=== PATIENT | female | born 2000 | race Native Hawaiian/Other Pacific Islander ===

== ENCOUNTER 2023-12-11 14:39 | Emergency (ER) | payer BC, SELFPAY ==
[2023-12-11 14:46] VITALS: BP 92/57; PULSE 66; RESP 18; TEMP 36.5; O2SAT 99; BMI 21.9
[2023-12-11 14:54] LABS: Appearance Urine Clear (Clear); Bilirubin Urine Negative (Negative); Blood Urine 3+ (Negative); Color Urine Yellow (Yellow); Glucose Urine Negative (Negative); Ketones Urine Negative (Negative); Leukocyte Esterase Urine Negative (Negative); Nitrite Urine Negative (Negative); Protein Urine Negative (Negative); Urobilinogen Urine 0.2 (0.2-1.0); pH Urine 8.5 (5.0-8.5)
--- NOTE | 2023-12-11 15:02 | ED_ITS ---
HPI - General Adult General Chief complaint: Urogenital Problems, Female Stated complaint: Vaginal bleeding, Abdominal pain Time Seen by Provider: 12/11/23 14:56 Source: patient Mode of arrival: ambulatory Limitations: no limitations History of Present Illness HPI narrative: 23-year-old female coming in today complaining of hematuria. She states that she has noticed blood in her urine twice today now. She denies any abdominal pain, no flank pain. She denies any dysuria. No increased urinary frequency or urgency. She denies any diarrhea. Her last period was approximately 3 weeks ago. She is not on control. She denies fevers or chills. No nausea or vomiting. Patient is not 100% sure whether the blood is coming from the urethra or the vagina. She states that there is a little bit of blood on the toilet paper when she wipes. However she is not spotting. Related Data Previous Rx's Medication Instructions Recorded nitrofurantoin 100 mg PO Q12H 5 days #10 caps 12/11/23 monohydrate/macrocrystals 100 mg capsule (Macrobid) Allergies Allergy/AdvReac Type Severity Reaction Status Date / Time No Known Drug Allergies Allergy Verified 12/11/23 14:48 Review of Systems Status of ROS: Reports: 6 or more systems reviewed and unremarkable except as noted in History and below Exam Narrative: Exam Narrative: Well-nourished well-developed patient in no acute distress. Alert and oriented. Answers questions appropriately. Mood and affect are appropriate. Thoughts are goal oriented and rational. No tangential or magical thinking noted. Patient speaks in full sentences without needing to catch her breath. HEENT: Normocephalic atraumatic. Pupils are equally round reactive to light. Extraocular muscles are intact. Conjunctivae are moist without any icterus noted. Moist mucous membranes. Const: Vital Signs, click to edit/add: Vital Signs - 24 hr 12/11/23 14:46 Temperature 97.7 F Pulse Rate [Right Pulse Oximeter] 66 Respiratory Rate 18 Blood Pressure [Ri ght Upper Arm] 92/57 L Pulse Oximetry 99 Oxygen Delivery Me thod Room Air Course Course ED Course: Urine shows 3+ blood, 0-2 RBCs on microscopic. Vital Signs Vital signs: Initial Vital Signs Temperature 97.7 F 12/11/23 14:46 Temperature Source Temporal Artery Scan 12/11/23 14:46 Pulse Rate 66 04/07/24 14:46 Respiratory Rate 18 12/11/23 14:46 Blood Pressure 92/57 L 12/11/23 14:46 Blood Pressure Mean 68 L 12/11/23 14:46 Blood Pressure Position Sitting 12/11/23 14:46 Pulse Oximetry 99 12/11/23 14:46 Oxygen Delivery Method Room Air 12/11/23 14:46 Vital Signs Temperature 97.7 F 12/11/23 14:46 Pulse Rate 66 12/11/23 14:46 Respiratory Rate 18 12/11/23 14:46 Blood Pressure 92/57 L 12/11/23 14:46 Pulse Oximetry 99 12/11/23 14:46 Oxygen Delivery Method Room Air 12/11/23 14:46 Temperature 97.7 F 12/11/23 14:46 Pulse Rate 66 12/11/23 14:46 Respiratory Rate 18 12/11/23 14:46 Blood Pressure 92/57 L 12/11/23 14:46 Pulse Oximetry 99 12/11/23 14:46 Oxygen Delivery Method Room Air 12/11/23 14:46 Medical Decision Making MDM Narrative Medical decision making narrative: 23-year-old female with vaginal verses urethral bleeding. We discussed doing a pelvic exam versus treating for a potential UTI and patient defers an exam at this time. Therefore we discussed treating with an antibiotic for 5 days, if this is a UTI symptoms should be getting better. Otherwise she may be having some vaginal bleeding between her periods - her period is due in approximately a week. We discussed following up with her primary care provider or [facility]alone fisherman if bleeding continues or gets worse. We discussed that given the UA results with 0-2 RBCs on the microscopic that there is a high likelihood that the bleeding is vaginal in nature. Lab Data Lab results reviewed: Yes I reviewed the patient's lab results Labs: Lab Results 12/11/23 Range/Units 14:47 Urine Color Yellow (Yellow) Urine Appearance Clear (Clear) Urine pH 8.5 (5.0-8.5) Ur Specific [place] 1.020 (1.000-1.030) Urine Protein Negative (Negative) Urine Glucose (UA) Negative (Negative) Urine Ketones Negative (Negative) Urine Blood 3+ A (Negative) Urine Nitrite Negative (Negative) Urine Bilirubin Negative (Negative) Urine Urobilinogen 0.2 (0.2-1.0) Ur Leukocyte Esterase Negative (Negative) Urine RBC 0-2 (0-2) Urine WBC 0-2 (0-5) Ur Squamous Epith Cells None (None-Few) Urine Bacteria None (None) Discharge Plan Discharge Clinical Impression: Hematuria Patient Disposition: Home, Self-Care Condition: Stable Additional Instructions: Take all antibiotics as prescribed. If bleeding does not get better, follow up with your primary care provider. Prescriptions: New nitrofurantoin monohyd/m-cryst [Macrobid] 100 mg capsule 100 mg PO Q12H 5 Days Qty: 10 0RF Rx Instructions: must administer with a meal/food Follow Up/Referrals: Leigh Ashley MD [Primary Care Provider] - Stand Alone Forms: [facility] Info Instructions
[2023-12-11 15:03] LABS: RBC Urine 0-2 (0-2); WBC Urine 0-2 (0-5)
== END 2023-12-11 15:17 | disposition home or self-care (01) ==
LOC: ED 15:09
PROVIDERS: Emergency Provider Family Medicine; PCP Pediatrics
DX: R31.9 Hematuria, unspecified (principal)
CPT/HCPCS: 81001; 99283

== ENCOUNTER 2024-05-09 06:55 | Emergency (ER) | payer BC, SELFPAY ==
[2024-05-09 07:12] VITALS: BP 115/75; PULSE 68; RESP 18; TEMP 37.3; O2SAT 100; BMI 22.1
--- NOTE | 2024-05-09 07:32 | CRLHL7_ITS ---
For Patients: As a result of the Century Cures Act, medical imaging exams and procedure reports are released immediately into your electronic medical record. You may view this report before your referring provider. If you have questions, please contact your health care provider. Indication: Bleeding Technique: Sonography of the gravid uterus was performed. The examination was performed transvaginally. Grayscale and Doppler imaging was provided Comparison: None Findings: The uterus is normal in size and configuration. No myometrial mass. A gestational sac is noted averaging 2.5 centimeters in diameter. The margins of the sac appear normal. A yolk sac is identified measuring 2.5 millimeters with normal morphology. A single living fetus is identified. This measures 1.7 centimeters corresponding to 8 weeks and 1 day with an estimated date of delivery of 12/18/2024. heart rate is 171 beats per minute which is normal. The right ovary measures 3.5 x 2.4 x 2.4 centimeters containing a corpus luteum cyst of . The left ovary was not identified. There is no free fluid in the cul de sac. A subchorionic hemorrhage is noted measuring 2.0 x 1.0 x 1.9 centimeters Impression: There is a single live intrauterine gestation at 8 weeks and 1 day with an estimated date of delivery of 12/18/2024. Subchorionic hemorrhage measuring 2.0 x 1.0 x 1.9 centimeters. Normal heart rate of 171 beats per minute Dictated by Bhaskar Graham MD @ 05/09/2024 8:35:20 AM (Electronically Signed)
--- NOTE | 2024-05-09 07:33 | ED.GENADULT ---
HPI - General Adult General Chief complaint: Vaginal Bleeding <Martha Wolfe MD - Last Filed: 05/09/24 08:33> Stated complaint: spotting & back pain- 7 wks preg <Martha Wolfe MD - Last Filed: 05/09/24 08:33> Time Seen by Provider: 05/09/24 07:16 <Martha Wolfe MD - Last Filed: 05/09/24 08:33> Source: patient <Martha Wolfe MD - Last Filed: 05/09/24 08:33> Mode of arrival: ambulatory <Martha Wolfe MD - Last Filed: 05/09/24 08:33> Limitations: no limitations <Martha Wolfe MD - Last Filed: 05/09/24 08:33> History of Present Illness HPI narrative: 23-year-old primary gravid with LMP of 03/15/2024 presents to the emergency department for evaluation of vaginal spotting, slight cramping and back pain this morning. Low-grade fever noted in triage. No trauma or injury, no vaginal discharge or dysuria. No prior history of DVT or PE, no anticoagulant use. Does not know her blood type. Believe she had an [facility] encounter [facility]. No prescription medications. No known drug allergies. She shows me the underwear and it is very scant spotting. No blood clots or tissue noted. No abdominal pain, vomiting or other complaints today. No unusual vaginal discharge besides the spotting. Past medical history is benign per her report. It sounds like she has had some PVCs before but no true arrhythmia. No prior . No allergies are long-term medications. Nonsmoker. ROS notable for the gynecological symptoms as above only, otherwise denies times 12 systems. <Martha Wolfe MD - Last Filed: 05/09/24 08:33> Related Data Home medications: Previous Rx's ?Medication ?Instructions ?Recorded nitrofurantoin 100 mg PO Q12H 5 days #10 caps 12/11/23 monohydrate/macrocrystals 100 mg capsule (Macrobid) nitrofurantoin 100 mg PO Q12H 5 days #10 caps 12/11/23 monohydrate/macrocrystals 100 mg capsule (Macrobid) <Martha Wolfe MD - Last Filed: 05/09/24 08:33> Allergies/adverse reactions: Allergies Allergy/AdvReac Type Severity Reaction Status Date / Time No Known Drug Allergies Allergy Verified 12/11/23 14:48 <Martha Wolfe MD - Last Filed: 05/09/24 08:33> PFSH PFSH Social History: Social History Smoking Status: Never smoker How often do you have a drink containing alcohol: never AUDIT-C Alcohol total score: 0 Non-prescribed substance use: denies use <Martha Wolfe MD - Last Filed: 05/09/24 08:33> Exam Const: Vital Signs, click to edit/add: Vital Signs - 24 hr 05/09/24 07:12 Temperature 99.1 F Pulse Rate [Pulse Oximeter] 68 Respiratory Rate 18 Blood Pressure [Ri ght Upper Arm] 115/75 Pulse Oximetry 100 Oxygen Delivery Me thod Room Air <Martha Wolfe MD - Last Filed: 05/09/24 08:33> Vital Signs, click to edit/add: Vital Signs - 24 hr 05/09/24 07:12 Temperature 99.1 F Pulse Rate [Pulse Oximeter] 68 Respiratory Rate 18 Blood Pressure [Ri ght Upper Arm] 115/75 Pulse Oximetry 100 Oxygen Delivery Me thod Room Air <Emerson Arevalo MD - Last Filed: 05/09/24 13:18> Documenting provider has reviewed patient's vital signs: yes <Martha Wolfe MD - Last Filed: 05/09/24 08:33> Common normals: no apparent distress <Martha Wolfe MD - Last Filed: 05/09/24 08:33> General appearance: cooperative and well kempt <Martha Wolfe MD - Last Filed: 05/09/24 08:33> Other: Tearful but appropriate, good historian <Martha Wolfe MD - Last Filed: 05/09/24 08:33> HENMT: Common normals: normocephalic <Martha Wolfe MD - Last Filed: 05/09/24 08:33> Head and scalp: normocephalic <MD Mishel Allan Last Filed: 05/09/24 08:33> Face and sinus: normal facial exam <MD Mishel Allan Last Filed: 05/09/24 08:33> Mouth: oral and palatal mucosa normal <MD Mishel Allan Last Filed: 05/09/24 08:33> Eye: Common normals: conjunctivae normal <MD Mishel Allan Last Filed: 05/09/24 08:33> General eye: normal appearance of both eyes <MD Mishel Allan Last Filed: 05/09/24 08:33> Conjunctiva: conjunctiva(e) normal <MD Mishel Allan Last Filed: 05/09/24 08:33> Resp: Common normals: normal respiratory effort, no use of accessory muscles and clear to auscultation bilaterally <MD Mishel Allan Last Filed: 05/09/24 08:33> Effort & inspection: able to speak in complete sentences <MD Mishel Allan Last Filed: 05/09/24 08:33> Auscultation: clear to auscultation bilaterally <MD Mishel Allan Last Filed: 05/09/24 08:33> Cardio: Common normals: regular rate, regular rhythm, S1 normal heart sound, S2 normal heart sound and no murmurs <MD Mishel Allan Last Filed: 05/09/24 08:33> Rate: regular rate <MD Mishel Allan Last Filed: 05/09/24 08:33> Rhythm: regular rhythm <MD Misehl Allan Last Filed: 05/09/24 08:33> Heart sounds: S1 normal and S2 normal <MD Mishel Allan Last Filed: 05/09/24 08:33> GI: Common normals: Normal to inspection, nondistended, normoactive bowel sounds present, soft to palpation, non-tender, no hepatosplenomegaly and no masses <MD Mishel Allan Last Filed: 05/09/24 08:33> Palpation: soft and no hepatosplenomegaly <Martha Wolfe MD - Last Filed: 05/09/24 08:33> Other: No fundal height palpable. <Martha Wolfe MD - Last Filed: 05/09/24 08:33> Extremity: Common normals: normal to inspection, normal capillary refill and no pedal edema <Martha Wolfe MD - Last Filed: 05/09/24 08:33> Psych: Appearance: well kempt <Martha Wolfe MD - Last Filed: 05/09/24 08:33> Attitude: engaged <Martha Wolfe MD - Last Filed: 05/09/24 08:33> Activity/motor behavior: appropriate eye contact <Martha Wolfe MD - Last Filed: 05/09/24 08:33> Insight: insight good <Martha Wolfe MD - Last Filed: 05/09/24 08:33> Judgement: judgment good <Martha Wolfe MD - Last Filed: 05/09/24 08:33> Skin: Common normals: no rashes or lesions noted <Martha Wolfe MD - Last Filed: 05/09/24 08:33> General skin exam: no rashes or lesions noted <Martha Wolfe MD - Last Filed: 05/09/24 08:33> Course Course ED Course: Under were examined, very scant bleeding, no active bleeding. Bedside ultrasound used and bladder was not ideally full but I can see what appears to be the uterus and endometrial stripe is super thin and I do not see any type of gestational sac. Unfortunately, I cannot clearly see the ovaries through this transabdominal view. I will need formal ultrasound. Differential diagnosis including kidney stone, gastroenteritis, pelvic infection but more likely miscarriage. Will obtain blood type, CBC, hCG quant and formal ultrasound. Cannot exclude ectopic unfortunately based on my limited ultrasound. Minimal bleeding at this point, no signs of significant hemorrhage. Vital signs stable. Low-grade fevers curious therefore warrants blood work. Anticipate handing over care to incoming day shift partner. <Martha Wolfe MD - Last Filed: 05/09/24 08:33> Reevaluation(s) Time of Reevaluation #1: 08:18 <Martha Wolfe MD - Last Filed: 05/09/24 08:33> Reevaluation #1: Counseled patient on preliminary ultrasound findings, [place] IUP noted. Large area of subchorionic hemorrhage noted. Chance this will go on to miscarriage. We reviewed the indications for ED management versus home management. Follow-up with primary care provider in 1-2 days. Any severe bleeding, dizziness, lightheadedness, soaking through more than 1 pad per hour for over an hour, and or any severe worrisome symptoms should come right back to the ED. She verbalizes understanding and agreement. Patient partner will follow up on formal ultrasound report to make sure that there are no discrepancies prior to discharge. <Martha Wolfe MD - Last Filed: 05/09/24 08:33> Vital Signs Vital signs: Initial Vital Signs Temperature 99.1 F 05/09/24 07:12 Temperature Source Temporal Artery Scan 05/09/24 07:12 Pulse Rate 68 05/09/24 07:12 Respiratory Rate 18 05/09/24 07:12 Blood Pressure 115/75 05/09/24 07:12 Blood Pressure Mean 88 05/09/24 07:12 Pulse Oximetry 100 05/09/24 07:12 Oxygen Delivery Method Room Air 05/09/24 07:12 Vital Signs Temperature 99.1 F 05/09/24 07:12 Pulse Rate 68 05/09/24 07:12 Respiratory Rate 18 05/09/24 07:12 Blood Pressure 115/75 05/09/24 07:12 Pulse Oximetry 100 05/09/24 07:12 Oxygen Delivery Method Room Air 05/09/24 07:12 Temperature 99.1 F 05/09/24 07:12 Pulse Rate 68 05/09/24 07:12 Respiratory Rate 18 05/09/24 07:12 Blood Pressure 115/75 05/09/24 07:12 Pulse Oximetry 100 05/09/24 07:12 Oxygen Delivery Method Room Air 05/09/24 07:12 <Martha Wolfe MD - Last Filed: 05/09/24 08:33> Initial Vital Signs Temperature 99.1 F 05/09/24 07:12 Temperature Source Temporal Artery Scan 05/09/24 07:12 Pulse Rate 68 05/09/24 07:12 Respiratory Rate 18 05/09/24 07:12 Blood Pressure 115/75 05/09/24 07:12 Blood Pressure Mean 88 05/09/24 07:12 Pulse Oximetry 100 05/09/24 07:12 Oxygen Delivery Method Room Air 05/09/24 07:12 Vital Signs Temperature 99.1 F 05/09/24 07:12 Pulse Rate 68 05/09/24 07:12 Respiratory Rate 18 05/09/24 07:12 Blood Pressure 115/75 05/09/24 07:12 Pulse Oximetry 100 05/09/24 07:12 Oxygen Delivery Method Room Air 05/09/24 07:12 Temperature 99.1 F 05/09/24 07:12 Pulse Rate 68 05/09/24 07:12 Respiratory Rate 18 05/09/24 07:12 Blood Pressure 115/75 05/09/24 07:12 Pulse Oximetry 100 05/09/24 07:12 Oxygen Delivery Method Room Air 05/09/24 07:12 <Emerson Arevalo MD - Last Filed: 05/09/24 13:18> Medical Decision Making MDM Narrative Medical decision making narrative: Mickey -- received Ms. Bradford in handoff at change of shift. Reviewed case. Pollution Control Chemist noting subchorionic hemorrhage. Pending a blood typing and hCG. Preliminary discharge anticipating no changes in conclusion/diagnosis per Dr. Wolfe Radiology over-read of ultrasound as below Findings: The uterus is normal in size and configuration. No myometrial mass. A gestational sac is noted averaging 2.5 centimeters in diameter. The margins of the sac appear normal. A yolk sac is identified measuring 2.5 millimeters with normal morphology. A single living fetus is identified. This measures 1.7 centimeters corresponding to 8 weeks and 1 day with an estimated date of delivery of 12/18/2024. heart rate is 171 beats per minute which is normal. The right ovary measures 3.5 x 2.4 x 2.4 centimeters containing a corpus luteum cyst of . The left ovary was not identified. There is no free fluid in the cul de sac. A subchorionic hemorrhage is noted measuring 2.0 x 1.0 x 1.9 centimeters Impression: There is a single live intrauterine gestation at 8 weeks and 1 day with an estimated date of delivery of 12/18/2024. Subchorionic hemorrhage measuring 2.0 x 1.0 x 1.9 centimeters. Normal heart rate of 171 beats per minute Discussed findings with patient and family. Hemoglobin looks good. Blood type O positive and will not need RhoGAM or similar. Appropriate hCG quantitative. Answered patient and family questions. See patient discharge plan for further discussion <Emerson Arevalo MD - Last Filed: 05/09/24 13:18> Lab Data Labs: Lab Results 05/09/24 05/09/24 Range/Units 07:34 07:40 WBC 5.47 (4.50-11.00) K/uL RBC 4.37 (4.00-5.20) m/uL Hgb 13.1 (12.0-16.0) gm/dL Hct 38.4 (33.0-51.0) % MCV 88 (80-100) fL MCH 30 (26-34) pg MCHC 34 (32-36) gm/dL RDW Coeff of [place] 13.0 (11.5-15.5) % Plt Count 198 (140-440) K/uL Neut % (Auto) 64.7 (42.0-72.0) % Lymph % (Auto) 25.2 (20-44) % [place] % (Auto) 8.0 (0.0-11.0) % Eos % (Auto) 1.5 (0.0-7.0) % Baso % (Auto) 0.4 (0.0-3.0) % Neut # (Auto) 3.54 (1.7-7.0) K/uL Lymph # (Auto) 1.38 (0.90-2.90) K/uL [place] # (Auto) 0.40 (0.00-0.90) K/UL Eos # (Auto) 0.08 (0.00-0.50) K/uL Baso # (Auto) 0.02 (0.00-0.30) K/uL Abs Immat Gran (auto) 0.01 (0.00-0.30) K/uL Imm/Tot Granulo (auto) 0.2 % HCG, Quant 481651.00 mIU/mL Urine Color Yellow (Yellow) Urine Appearance Clear (Clear) Urine pH 6.0 (5.0-8.5) Ur Specific [place] 1.025 (1.000-1.030) Urine Protein Negative (Negative) Urine Glucose (UA) Negative (Negative) Urine Ketones Negative (Negative) Urine Blood Trace-intact A (Negative) Urine Nitrite Negative (Negative) Urine Bilirubin Negative (Negative) Urine Urobilinogen 0.2 (0.2-1.0) Ur Leukocyte Esterase Negative (Negative) Urine RBC 0-2 (0-2) Urine WBC 2-5 (0-5) Ur Squamous Epith Cells Few (None-Few) Urine Bacteria Moderate A (None) Urine Mucus Many A (None) Blood Type O Positive <Martha Wolfe MD - Last Filed: 05/09/24 08:33> Lab Results 05/09/24 05/09/24 Range/Units 07:34 07:40 WBC 5.47 (4.50-11.00) K/uL RBC 4.37 (4.00-5.20) m/uL Hgb 13.1 (12.0-16.0) gm/dL Hct 38.4 (33.0-51.0) % MCV 88 (80-100) fL MCH 30 (26-34) pg MCHC 34 (32-36) gm/dL RDW Coeff of [place] 13.0 (11.5-15.5) % Plt Count 198 (140-440) K/uL Neut % (Auto) 64.7 (42.0-72.0) % Lymph % (Auto) 25.2 (20-44) % [place] % (Auto) 8.0 (0.0-11.0) % Eos % (Auto) 1.5 (0.0-7.0) % Baso % (Auto) 0.4 (0.0-3.0) % Neut # (Auto) 3.54 (1.7-7.0) K/uL Lymph # (Auto) 1.38 (0.90-2.90) K/uL [place] # (Auto) 0.40 (0.00-0.90) K/UL Eos # (Auto) 0.08 (0.00-0.50) K/uL Baso # (Auto) 0.02 (0.00-0.30) K/uL Abs Immat Gran (auto) 0.01 (0.00-0.30) K/uL Imm/Tot Granulo (auto) 0.2 % HCG, Quant 355215.00 mIU/mL Urine Color Yellow (Yellow) Urine Appearance Clear (Clear) Urine pH 6.0 (5.0-8.5) Ur Specific [place] 1.025 (1.000-1.030) Urine Protein Negative (Negative) Urine Glucose (UA) Negative (Negative) Urine Ketones Negative (Negative) Urine Blood Trace-intact A (Negative) Urine Nitrite Negative (Negative) Urine Bilirubin Negative (Negative) Urine Urobilinogen 0.2 (0.2-1.0) Ur Leukocyte Esterase Negative (Negative) Urine RBC 0-2 (0-2) Urine WBC 2-5 (0-5) Ur Squamous Epith Cells Few (None-Few) Urine Bacteria Moderate A (None) Urine Mucus Many A (None) Blood Type O Positive <Emerson Arevalo MD - Last Filed: 05/09/24 13:18> Imaging Data Pelvic ultrasound: Attestation: I have reviewed the pertinent imaging results. <Martha Wolfe MD - Last Filed: 05/09/24 08:33> My impression: Tech and my impression of the transvaginal views shows a well-developed single daniel IUP consistent with reported gestational age. There unfortunately is a pretty good sized subchorionic hemorrhage as well. <Martha Wolfe MD - Last Filed: 05/09/24 08:33> Discharge Plan Discharge Clinical Impression: Subchorionic hemorrhage in first trimester, Threatened <Martha Wolfe MD - Last Filed: 05/09/24 08:33> Patient Disposition: Home w/ Parent or Adult <Martha Wolfe MD - Last Filed: 05/09/24 08:33> Condition: Stable <Martha Wolfe MD - Last Filed: 05/09/24 08:33> Instructions: Subchorionic Hemorrhage (ED) <Martha Wolfe MD - Last Filed: 05/09/24 08:33> Additional Instructions: As discussed, there is a healthy appearing, growing baby low in the uterus. This is good news. Unfortunately, we do see an area of bleeding along the edge of the developing placenta. At this time, it is too soon to tell what will happen. There is a chance that you will go on to miscarry this and there is a good chance that you will go on to continue with a healthy . You are likely to continue to have spotting though because of this area of bleeding under the placenta. With slight bleeding, you do not need to coming to the emergency department. You should come into the emergency department if your consistently soaking through a pad per hour for over an hour. You can also call your primary care doctor for guidance if you are unsure. I would recommend pelvic rest meaning nothing in the vagina for the next 48 hours and that you follow-up with your regular doc in 1-2 days to recheck how things are going and for additional advice and guidance. It is okay to use Tylenol as needed for mild cramping and discomfort. Rest for today. Continue to eat and drink normally. Zofran as requested from [facility]. <Martha Wolfe MD - Last Filed: 05/09/24 08:33> Activity Level: Activity as Tolerated <Martha Wolfe MD - Last Filed: 05/09/24 08:33> Activity as Tolerated <Emerson Arevalo MD - Last Filed: 05/09/24 13:18> Discharge Diet: Regular <Martha Wolfe MD - Last Filed: 05/09/24 08:33> Regular <Emerson Arevalo MD - Last Filed: 05/09/24 13:18> Prescriptions: No Action nitrofurantoin monohyd/m-cryst [Macrobid] 100 mg capsule 100 mg PO Q12H 5 Days Qty: 10 0RF Rx Instructions: must administer with a meal/food nitrofurantoin monohyd/m-cryst [Macrobid] 100 mg capsule 100 mg PO Q12H 5 Days Qty: 10 0RF Rx Instructions: must administer with a meal/food <Martha Wolfe MD - Last Filed: 05/09/24 08:33> Follow Up/Referrals: Leigh Ashley MD [Primary Care Provider] - <Martha Wolfe MD - Last Filed: 05/09/24 08:33> Stand Alone Forms: [facility] Info Instructions <Martha Wolfe MD - Last Filed: 05/09/24 08:33>
[2024-05-09 07:41] LABS: Basophils Absolute Auto 0.02 K/uL (0.00-0.30); Basophils Percent Auto 0.4 % (0.0-3.0); Eosinophils Absolute Auto 0.08 K/uL (0.00-0.50); Eosinophils Percent Auto 1.5 % (0.0-7.0); Hematocrit 38.4 % (33.0-51.0); Hemoglobin* 13.1 gm/dL (12.0-16.0); Immature Granulocytes Abs Auto 0.01 K/uL (0.00-0.30); Immature Granulocytes Pct Auto 0.2 %; Lymphocytes Absolute Auto 1.38 K/uL (0.90-2.90); Lymphocytes Percent Auto 25.2 % (20-44); Mean Corpuscular HGB Conc 34 gm/dL (32-36); Mean Corpuscular Hemoglobin 30 pg (26-34); Mean Corpuscular Volume 88 fL (80-100); Neutrophils Absolute Auto 3.54 K/uL (1.7-7.0); Neutrophils Percent Auto 64.7 % (42.0-72.0); Platelet Count* 198 K/uL (140-440); Red Blood Count 4.37 m/uL (4.00-5.20); White Blood Count* 5.47 K/uL (4.50-11.00)
[2024-05-09 07:43] LABS: Slide Review Reflex No
[2024-05-09 08:14] LABS: Appearance Urine Clear (Clear); Color Urine Yellow (Yellow)
[2024-05-09 08:15] LABS: Bilirubin Urine Negative (Negative); Blood Urine Trace-intact (Negative); Glucose Urine Negative (Negative); Ketones Urine Negative (Negative); Leukocyte Esterase Urine Negative (Negative); Nitrite Urine Negative (Negative); Protein Urine Negative (Negative); Specific Gravity Urine 1.025 (1.000-1.030); Urobilinogen Urine 0.2 (0.2-1.0)
[2024-05-09 08:16] LABS: Bacteria Urine Moderate; Mucus Urine Many; RBC Urine 0-2 (0-2); Squamous Epithelial Cell Urine Few (None-Few)
== END 2024-05-09 09:03 | disposition home or self-care (01) ==
LOC: ED 08:23
PROVIDERS: Emergency Provider Family Medicine; PCP Pediatrics
DX: O20.0 Threatened abortion (principal); O20.8 Other hemorrhage in early pregnancy
CPT/HCPCS: 36415; 76817; 81001; 81003; 84702; 85025; 86900; 86901; 87086; 99284

== ENCOUNTER 2024-11-23 23:46 | Outpatient (CLI) | payer OTHER, SELFPAY ==
[2024-11-23 23:54] VITALS: TEMP 36.8
[2024-11-23 23:59] VITALS: BP 116/64; PULSE 92
[2024-11-24] VITALS (7 sets, daily range): PULSE 86–108; TEMP 36.6; O2SAT 98–99
[2024-11-24] MEDS: ONDANSETRON 2 MG/ML inj 4 MG IVP (00:51)
[2024-11-24] MEDS: LACTATED RINGERS 1000 ML 1,000 ML IV (00:52)
--- NOTE | 2024-11-24 01:46 | PC.OBNST ---
NST Note NST Note Start: 11/23/24 23:53 Freq: ONCE Status: Active Protocol: Document 11/24/24 01:45 PRICE (Rec: 11/24/24 01:46 PRICE [id number]) NST Note 1 Para (# of births) 0 EDC 12/20/24 Gestational Age In Weeks & Days 36 Weeks & 2 Days Patient Presented with Complaint(s) of Nausea and vomiting Reactive Yes Appropriate for Gestational Age Yes RN Jorge RN Date 11/24/24 Reactive Yes Appropriate for Gestational Age Yes RN Slick RN Date 11/24/24 OB NST charge Yes Complete NST Note via Write Note Yes The provider's electronic signature indicates the NST is reactive/appropriate for gestational age. *Note to provider: If an addendum is required, open the patient's chart and click on the note under the Nurse/Allied Health tab.
== END 2024-11-24 02:00 | disposition home or self-care (01) ==
LOC: OB OUT 23:47 → OB 23:48
PROVIDERS: PCP Pediatrics; Visit Provider Family Medicine
DX: O26.893 Other specified pregnancy related conditions, third trimester (principal); R11.2 Nausea with vomiting, unspecified; Z3A.36 36 weeks gestation of pregnancy
CPT/HCPCS: 59025; G0463; J2405; J7120